=== PATIENT | female | born 1955 | race African-American/Black ===

== ENCOUNTER 2019-04-29 10:20 | Emergency (ER) | payer OTHER ==
[~2019-04-29] VITALS: Ht 154.9 cm; Wt 57.7 kg
[~2019-04-29 10:20] MED LIST: NOCURR
[2019-04-29] MEDS ORDERED: CEPHALEXIN MONOHYDRATE 500 MG CAPSULE PO ONE (11:45)
[2019-04-29] MEDS ORDERED: PERTUSS(ACELL),DIPH,TET VAC/PF 0.5 ML VIAL IM ONE (11:45)
[2019-04-29] MEDS ORDERED: HYDROGEN PEROXIDE 118 ML SOLUTION TP ONE (11:45)
[2019-04-29 12:00] VITALS: BP 132/88
== END 2019-04-29 12:07 | disposition home or self-care (01) ==
LOC: EMS 10:28
DX: S81.852A Open bite, left lower leg, initial encounter (principal); L08.9 Local infection of the skin and subcutaneous tissue, unspecified; F17.210 Nicotine dependence, cigarettes, uncomplicated; W54.0XXA Bitten by dog, initial encounter; Y93.89 Activity, other specified; Y92.89 Other specified places as the place of occurrence of the external cause; Y99.8 Other external cause status
CPT/HCPCS: 90471; 90715